=== PATIENT | male | born 1995 | race Caucasian/White ===

== ENCOUNTER 2016-08-27 12:03 | Emergency (ER) | payer OTHER ==
[2016-08-27] MEDS ORDERED: ONDANSETRON 4 MG/2ML 2 ML VIAL ONE (12:15)
[2016-08-27] MEDS ORDERED: MORPHINE SULFATE 4 MG/ML SYRINGE ONE ×3 (12:15→14:05)
[2016-08-27] MEDS ORDERED: DIPHTH,PERTUSS(ACELL),TET VAC 0.5 ML VIAL IM V ONE (12:28)
[2016-08-27] MEDS ORDERED: KETOROLAC TROMETHAMINE 30 MG/ML 1 ML VIAL ONE (12:47)
--- NOTE | 2016-08-27 12:55 | RAD ---
FOREARM RIGHT COMPARISON: None. HISTORY: Crush injury to right forearm. FINDINGS: Views: Right forearm AP and lateral. Bones: Normal. Joints: Normal. Soft tissues: Normal. IMPRESSION: 1. No fracture.
--- NOTE | 2016-08-27 12:56 | RAD ---
ELBOW -RIGHT 3-4 VIEWS COMPARISON: None HISTORY: Crush injury to the right elbow and arm. FINDINGS: Views: Right elbow AP, oblique, lateral. Bones: Normal. Joint spacing: Normal. Soft tissues: Edema in the subcutaneous fat, proximal forearm. IMPRESSION: 1. No fracture. Edema in the subcutaneous fat of the proximal forearm.
[2016-08-27] MEDS ORDERED: LIDO/EPI/TETRACAINE GEL 1 APPLIC/5 ML SYRINGE ONE (14:01)
== END 2016-08-27 14:59 | disposition home or self-care (01) ==
LOC: ED 12:03
DX: S57.81XA Crushing injury of right forearm, initial encounter (principal); W31.83XA Contact with special construction vehicle in stationary use, initial encounter; Z23 Encounter for immunization
CPT/HCPCS: 90715; 73080; 73090; 90471; 96375 ×2; 99283 ×2; 96376 ×2; 29105; 96374; J2270 ×3; J1885; J2405; A9270